=== PATIENT | female | born 1945 | race Caucasian/White ===

== ENCOUNTER 2016-12-22 11:30 | Emergency (ER) | payer OTHER, MEDICARE ==
[~2016-12-22] VITALS: Ht 170.2 cm; Wt 90.5 kg
[2016-12-22 11:38] VITALS: BP 133/73; PULSE 70; RESP 16; O2SAT 70
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
[2016-12-22] MEDS ORDERED: Ketorolac 30 mg/mL 2 mL Inj IM ONE (12:05)
[2016-12-22 12:13] VITALS: BP 101/57; PULSE 70; RESP 12; O2SAT 99
--- NOTE | 2016-12-22 12:28 | DRSVH ---
PROCEDURE: X-RAY LEFT SHOULDER, MINIMUM TWO VIEWS ([id number]) INDICATIONS: shoulder pain TECHNIQUE: 2 views of the shoulder were acquired. COMPARISON: MERGED WITH [facility], , CHEST 2VW, 12/01/2013, 15:09. FINDINGS: Bones: No fractures or dislocations. No suspicious bony lesions. Visualized ribs appear intact. M oderate acromioclavicular joint degeneration. Soft tissues: A small suspicious soft tissue calcification is seen above the humeral head suggests ca lcific tendinitis. IMPRESSION: 1. Moderate degenerative changes. 2. Calcific tendinitis. Dictated by: Yaakov Reed M.D. on 12/22/2016 at 12:25 Approved by: Yaakov Reed M.D. on 12/22/2016 at 12:27
== END 2016-12-22 13:48 | disposition home or self-care (01) ==
LOC: SED 11:30
DX: M75.92 Shoulder lesion, unspecified, left shoulder (principal); M75.02 Adhesive capsulitis of left shoulder; R53.83 Other fatigue; R11.0 Nausea; E78.5 Hyperlipidemia, unspecified; I10 Essential (primary) hypertension; Z88.0 Allergy status to penicillin
CPT/HCPCS: 73030; 93005; 96372; 99284; J1885